=== PATIENT | male | born 1980 ===

== ENCOUNTER 2016-12-08 19:55 | Emergency (ER) | payer OTHER ==
[2016-12-08 21:08] VITALS: BP 139/98; PULSE 82; RESP 17; TEMP 98.6; O2SAT 99
[2016-12-08] MEDS ORDERED: Lidocaine 2% w Epi 1:100,000 Inj IJ ONE (21:42)
[2016-12-08] MEDS ORDERED: Lidocaine/Epi 1% 1:100000 20 ML IJ ONE (21:47)
--- NOTE | 2016-12-08 22:11 | ED PDOC ---
HPI: General Adult Time Seen by Provider: 12/08/16 21:44 Chief Complaint (Nursing): Abnormal Skin Integrity History Per: Patient History/Exam Limitations: no limitations Onset/Duration Of Symptoms: Hrs Current Symptoms Are (Timing): Still Present Additional Complaint(s): hx of abscesses p/w reaccumalated perianal abscess, has f/u w/ specialty services for potential surgery. c/o of pain to area and swelling, no fevers/ chills. Past Medical History Reviewed: Historical Data, Nursing Documentation, Vital Signs Vital Signs: Last Vital Signs Temp 98.6 F 12/08/16 21:05 Pulse 82 12/08/16 21:05 Resp 17 12/08/16 21:05 BP 139/98 H 12/08/16 21:05 Pulse Ox 99 12/08/16 21:05 - Family History Family History: States: Unknown Family Hx - Home Medications Home Medications: Ambulatory Orders Medication Instructions Recorded Cephalexin [cephalexin] 500 mg PO Q6 #28 cap 08/17/16 No Home Meds 08/17/16 - Allergies Allergies/Adverse Reactions: Allergies Allergy/AdvReac Type Severity Reaction Status Date / Time No Known Allergies Allergy Verified 08/17/16 19:30 Review of Systems ROS Statement: Except As Marked, All Systems Reviewed And Found Negative Skin: Positive for: Lesions (abscess) Physical Exam - Reviewed Nursing Documentation Reviewed: Yes Vital Signs Reviewed: Yes - Physical Exam Appears: Positive for: Well, Non-toxic, No Acute Distress Head Exam: Positive for: ATRAUMATIC, NORMAL INSPECTION, NORMOCEPHALIC Skin: Positive for: Normal Color, Warm, DRY Eye Exam: Positive for: EOMI, Normal appearance, PERRL ENT: Positive for: Normal ENT Inspection Neck: Positive for: Normal, Painless ROM Cardiovascular/Chest: Positive for: Regular Rate, Rhythm Respiratory: Positive for: CNT, Normal Breath Sounds Gastrointestinal/Abdominal: Positive for: Normal Exam, Bowel Sounds, Soft Back: Positive for: Normal Inspection Rectal: Positive for: Other (Zeinab-anal abscess, flucutance, draining blood, also keloids ) Extremity: Positive for: Normal ROM Neurologic/Psych: Positive for: Alert, Oriented - ECG O2 Sat by Pulse Oximetry: 99 Pulse Ox Interpretation: Normal Medical Decision Making Medical Decision Making: Abscess- will drain and refer patient to specialty services Procedures - Incision and Drainage Site: zeinab-anal abscess Blade Size: 11 I & D Procedure: betadine prep, sterile drapes applied, sterile dressing applied Progress: lido w/ epi used area incised 1mm 2-3cc's of pus/blood drained pt tolerated procedure well Disposition - Clinical Impression Clinical Impression: Abscess - Disposition Referrals: [facility] [Outside] Disposition Time: 22:13 Condition: STABLE Instructions: Abscess (ED), Abscess Incision and Drainage (ED) Print Language: GREEK
== END 2016-12-08 22:21 | disposition home or self-care (01) ==
LOC: H.ER 19:55
DX: K61.0 Anal abscess (principal)

== ENCOUNTER 2017-01-31 11:03 | Day surgery (SDC) | payer SELFPAY ==
[2017-01-26 10:01] VITALS: BMI 29.6
[2017-01-31] MEDS ORDERED: Lactated Ringer's 1,000 ML IV ONE (11:35)
[2017-01-31] MEDS ORDERED: Propofol 10 mg/ml Inj (20 ML) ONE (13:13)
[2017-01-31] MEDS ORDERED: Succinylcholine 200 mg/10 ml Inj IV ONE (13:13)
[2017-01-31] MEDS ORDERED: Midazolam 2 MG/2 ML VIAL ONE (14:04)
--- NOTE | 2017-01-31 14:48 | PCM.SURG1 ---
Surgeon's Initial Post Op Note - Surgeon's Notes Surgeon: Dr. Matson Director Of Student Aid: Samuel PGY1 Type of Anesthesia: General Endo, IV Sedation Anesthesia Administered By: Deisi Pre-Operative Diagnosis: Pilonidal Cyst Operative Findings: Same Post-Operative Diagnosis: Same Operation Performed: Excision of Pilonidal cyst Specimen/Specimens Removed: none Estimated Blood Loss: EBL {In ML}: 10 Blood Products Given: N/A Drains Used: No Drains Post-Op Condition: Good Date of Surgery/Procedure: 01/31/17 Time of Surgery/Procedure: 14:48
[2017-01-31] MEDS ORDERED: Oxycodone/Acetaminophen 5/325 mg Tab PO PRN (14:49)
[2017-01-31] MEDS ORDERED: HYDROmorphone 0.5 mg/0.5 ml ISec IVP PRN (14:52)
[2017-01-31] MEDS ORDERED: Dexamethasone 4 mg/1 ml IVP PRN (14:52)
--- NOTE | 2017-01-31 14:58 | CP.SDSHP ---
Same Day Surgery H & P - History Proposed Procedure: Excision of Pilonidal cyst - Allergies Allergies: Allergies No Known Allergies Allergy (Verified 08/17/16 19:30) - Physical Exam Vital Signs: Vital Signs 01/31/17 01/31/17 11:24 11:26 Temperature 98.2 F Pulse Rate 62 62 Respiratory 20 Rate Blood Pressure 135/90 O2 Sat by Pulse 100 Oximetry Short Stay Discharge - Short Stay Discharge Admitting Diagnosis/Reason for Visit: L05.01 Disposition: HOME/ ROUTINE Referrals: Alia Matson MD [Primary Care Provider] - Progress Note/Discharge Note with Instructions: Patient is cleared for discharge. 1. Follow up with Dr. Matson in 2 weeks. Call for appointment. 2. Remove dressing in 2 days. Replace with dry gauze as needed 3. You may shower in two days. No bathing , no soaking 4. Use pain meds sparingly 5. Return to the ED with any concerning symptoms
[2017-01-31 16:11] VITALS: RESP 18; TEMP 98
[2017-01-31 17:58] VITALS: BP 124/76; PULSE 62; O2SAT 98
--- NOTE | 2017-02-01 02:57 | OP ---
PROCEDURE DATE: 01/31/2017 PREOPERATIVE DIAGNOSIS: Pilonidal cyst, left buttock. POSTOPERATIVE DIAGNOSIS: Pilonidal cyst, left buttock. PROCEDURE: Debridement of pilonidal cyst. SURGEON: Alia Matson MD HEAD OF MAINTENANCE: Dr. Baker. TYPE OF ANESTHESIA: General. ANESTHESIA ADMINISTERED BY: Dr. Lipscomb. DESCRIPTION OF OPERATION: The patient was placed in a left side up lateral position. After the induction of general anesthesia, the lower back and buttocks were prepped and draped in the usual sterile manner. On the somewhat medial portion of the left buttock, but just barely within the gluteal crease, there was noted to be two small masses of granulation tissue with some purulent drainage coming from one of the masses at a side where the patient said he has had chronic drainage over a period of several months. Incision was made into this area with incision of the flatter portion of elevated granulation tissue down to the area of the sinus, which was draining and the other piece of granulation tissue was excised using cautery. A small cavity was thus identified, which contained other chronically inflamed granulation type tissue and no significant track was identified extending either towards the midline of the gluteal crease or towards the rectal area. The cavity was debrided and scrapped using a curette and any visible granulation tissue was cauterized. Iodoform packing was placed followed by dry sterile dressing. The patient tolerated the procedure well and transferred to the recovery room in stable condition. Estimated blood loss for the procedure was 30 mL. Alia Matson MD
== END 2017-01-31 17:30 | disposition home or self-care (01) ==
LOC: H.OPSURG 11:03
PROVIDERS: ATTEND Specialist
DX: L05.01 Pilonidal cyst with abscess (principal)

== ENCOUNTER 2017-09-10 10:39 | Day surgery (SDC) | payer SELFPAY ==
[2017-08-30 14:14] VITALS: BMI 30.4
[2017-09-10] MEDS ORDERED: Succinylcholine 200 mg/10 ml Inj IV ONE (11:22)
[2017-09-10] MEDS ORDERED: Lidocaine 4% (Laryng-O-Jet) Kit MM ONE (11:22)
[2017-09-10] MEDS ORDERED: Propofol 10 mg/ml Inj (20 ML) ONE ×2 (11:22→12:40)
[2017-09-10] MEDS ORDERED: Methylene Blue 10 mg/mL(10ml) IV ONE (11:55)
[2017-09-10] MEDS ORDERED: Midazolam 2 MG/2 ML VIAL ONE (12:07)
[2017-09-10] MEDS ORDERED: Lactated Ringer's 1,000 ML IV ONE ×2 (12:20→14:35)
[2017-09-10] MEDS ORDERED: HYDROmorphone 0.5 mg/0.5 ml ISec IVP PRN (13:11)
[2017-09-10] MEDS ORDERED: Lactated Ringer's 1,000 ML IV SCH (13:15)
--- NOTE | 2017-09-10 13:37 | CP.SDSHP ---
Same Day Surgery H & P - History Proposed Procedure: anal fistulectomy Pre-Op Diagnosis: anal fistula - Previous Medical/Surgical History Pain: 2.Mild Pain Previous Surgical History: pilonidal cyst excision 2017 - Allergies Allergies: Allergies No Known Allergies Allergy (Verified 09/10/17 10:51) - Physical Exam General Appearance: WDWN male in NAD Vital Signs: Vital Signs 09/10/17 09/10/17 09/10/17 11:17 11:21 13:09 Temperature 97.9 F 95.6 F L Pulse Rate 50 L 50 L 57 L Respiratory 18 17 Rate Blood Pressure 122/75 135/67 O2 Sat by Pulse 99 98 Oximetry 09/10/17 13:25 Temperature 96.1 F L Pulse Rate 59 L Respiratory 17 Rate Blood Pressure 134/69 O2 Sat by Pulse 98 Oximetry Mental Status: Alert & Oriented x3 Neuro: WNL Heart: WNL Lungs: WNL GI: WNL - {Optional Preform as Required} Rectal: Other (Granulating, draining opening medial L buttock at 4:00) - Impression Impression: anal fistula Pt. Evaluated Today:Candidate for Anesthesia & Procedure: Yes - Date & Time Date: 09/10/17 Time: 11:15 Short Stay Discharge - Short Stay Discharge Admitting Diagnosis/Reason for Visit: K60.3 Disposition: HOME/ ROUTINE Medications: oxyCODONE/Acetaminophen [Percocet 5/325 mg Tab] 1 ea PO Q4H PRN 2 Days #7 tab PRN Reason: Pain, Moderate (4-7) Referrals: Alia Matson MD [Primary Care Provider] - Follow-up: [facility] 2 weeks Additional Instructions (Diet, Activity): Clean area with shower BID/PRN Progress Note/Discharge Note with Instructions: Surgical site clean, dry. Stable postop
--- NOTE | 2017-09-10 13:44 | PCM.SURG1 ---
Surgeon's Initial Post Op Note - Surgeon's Notes Surgeon: Mitch Matson Shell Worker: none Type of Anesthesia: General Endo Anesthesia Administered By: Venus Pre-Operative Diagnosis: anal fistula Operative Findings: L buttock opening at 4:00 tracking to anterior internal opening at 12:00. 0-silk seton Post-Operative Diagnosis: anal fistula Operation Performed: Proctoscopy, exploration of anal fistula with seton placement Specimen/Specimens Removed: none Estimated Blood Loss: EBL {In ML}: 10 Blood Products Given: N/A Drains Used: No Drains Post-Op Condition: Good Date of Surgery/Procedure: 09/10/17 Time of Surgery/Procedure: 13:44
--- NOTE | 2017-09-10 15:24 | OP ---
PROCEDURE DATE: 09/10/2017 PREOPERATIVE DIAGNOSIS: Anal fistula. POSTOPERATIVE DIAGNOSIS: Anal fistula. PROCEDURE: Rigid proctoscopy and exploration of anal fistula with seton placement. SURGEON: Alia Matson MD TYPE OF ANESTHESIA: General. ANESTHESIA ADMINISTERED BY: Dr. Donovan. DESCRIPTION OF OPERATION: The patient was anesthetized and placed in a lithotomy position using solid thin stirrups. The examination noted a granulating draining opening on the medial left buttock at approximately the 4 o'clock position 2 inches from the anal verge and rigid proctoscopy was performed up to 10 cm with the only finding being an anterior area of ulceration at 12 o'clock very closed to the anal verge. There were no other areas of abnormality. The proctoscope was removed. The buttocks and anal area were then prepped and draped in the usual sterile manner and a probe was placed via the buttock sinus opening and was noted to track anteriorly to the area that was identified on the proctoscopy as this was a fairly long track from 4 o'clock to 12 o'clock. Decision was made to place a seton and the probe was exposed and using the eye of the probe, a 0 silk tie was passed through the length of the track and then loosely tied. No additional areas of abnormality were identified and the area was irrigated and a dry sterile dressing placed. The patient tolerated the procedure well and transferred to recovery room in stable condition. Estimated blood loss for the procedure was 10 mL. Alia Matson MD
[2017-09-10 15:40] VITALS: RESP 18; O2SAT 98
[2017-09-10 15:52] VITALS: BP 129/77; PULSE 67; TEMP 98.9
== END 2017-09-10 16:25 | disposition home or self-care (01) ==
LOC: H.OPSURG 10:39
PROVIDERS: ATTEND Specialist
DX: K60.3 Anal fistula (principal)
CPT/HCPCS: 45300; J0330; J0690; J2001; J2250; J2405; J2704; J3010; J7030; J7120

== ENCOUNTER 2018-02-25 11:53 | Emergency (ER) | payer SELFPAY ==
[2018-02-25 11:54] VITALS: BMI 30.4
[2018-02-25] MEDS ORDERED: Naproxen 500 MG TAB PO STA (12:32)
[2018-02-25] MEDS ORDERED: Lidocaine 2% w Epi 1:100,000 Inj IJ ONE (12:32)
[2018-02-25] MEDS ORDERED: Tmp-Smz 800 mg-160 mg DS Tab PO STA (12:32)
--- NOTE | 2018-02-25 12:39 | ED PDOC ---
HPI: Wound Care - HPI Time Seen by Provider: 02/25/18 12:17 Chief Complaint (Nursing): Wound Check Chief Complaint (Provider): Wound Check History Per: Patient Exam Limitations: no limitations Onset/Duration Of Symptoms: Persistent, Worse Since (x2 days) Current Symptoms Are (Timing): Still Present Quality Of Symptoms: Draining Additional Complaint(s): 38 year old male complains of a persistent abscess with drainage to the left buttock which became worse 2 days ago. Patient reports the abscess has been drained 2 times in the past by Dr. Alia Matson and that he developed a fistula the last time in September of this year and a suture is in place in the buttock location. Otherwise: (-) fever, (-) chills, (-) nausea, (-) vomiting, or (-) urinary symptoms. PMD: none provided Past Medical History Reviewed: Historical Data, Nursing Documentation, Vital Signs Vital Signs: Last Vital Signs Temp 97 F L 02/25/18 11:57 Pulse 77 02/25/18 11:57 Resp 18 02/25/18 11:57 BP 142/82 02/25/18 11:57 Pulse Ox 97 02/25/18 11:57 - Medical History PMH: No Chronic Diseases Denies: Chronic Kidney Disease - Surgical History Surgical History: Denies: No Surg Hx Other surgeries: pilonidal cyst drained x3 - Family History Family History: States: Unknown Family Hx - Social History Current smoker - smoking cessation education provided: No Ex-Smoker (has not smoked in the last 12 months): No Alcohol: Occasional Drugs: Denies - Home Medications Home Medications: Ambulatory Orders Medication Instructions Recorded Ibuprofen [Advil] 200 mg PO PRN PRN 09/10/17 oxyCODONE/Acetaminophen [Percocet 1 ea PO Q4H PRN 2 Days #7 tab 09/10/17 5/325 mg Tab] Cephalexin [Keflex] 500 mg PO Q6 #28 capsule 02/25/18 Naproxen 500 mg PO BID PRN #20 tablet 02/25/18 Sulfamethoxazole/Trimethoprim 2 tab PO BID #28 tab 02/25/18 [Bactrim DS 800 mg-160 mg] - Allergies Allergies/Adverse Reactions: Allergies Allergy/AdvReac Type Severity Reaction Status Date / Time No Known Allergies Allergy Verified 03/05/18 10:51 Review of Systems ROS Statement: Except As Marked, All Systems Reviewed And Found Negative Constitutional: Negative for: Fever, Chills Gastrointestinal: Negative for: Nausea, Vomiting Genitourinary Male: Negative for: Dysuria, Hematuria Skin: Positive for: Other (left buttock abscess with drainage) Physical Exam - Reviewed Nursing Documentation Reviewed: Yes Vital Signs Reviewed: Yes - Physical Exam Comments: GENERAL APPEARANCE: Patient is awake, alert, oriented x 3, in no acute distress. Skin: warm and dry. +3x4cm tender, slightly fluctuant abscess to the medial aspect of left buttock with drainage. Proximal to the abscess is a black suture in place. Pulmonary: lungs clear, no rhonchi, no wheezing. Cardiac: regular rate and rhythm, no murmur, no gallop. Abdomen: soft, nontender. Back: no midline tenderness. Extremities: no deformity, full range of motion, no tenderness. - ECG O2 Sat by Pulse Oximetry: 97 (RA) Pulse Ox Interpretation: Normal Medical Decision Making Medical Decision Making: Time: 1232 Initial Plan: * Bactrim DS * Keflex 500mg PO * Naproxen 500mg PO * Xylocaine 2% with Epi 5ml IJ Time: 1230 --Case discussed with neurosurgical nurse, Dr. Rosario, who states that a seton suture is in place for fistula and to "leave it as it is". Patient is advised to follow up with his surgeon, Dr. Matson, at the clinic without fail. Advised to take medication as prescribed. Return to the emergency room at any time for any new or worsening symptoms. --Patient states he fully agrees with and understands discharge instructions. States that he agrees with the plan and disposition. Verbalized and repeated discharge instructions and plan. I have given the patient opportunity to ask any additional questions. Scribe Attestation: Documented by Tara Benitez, acting as a scribe for Vicenta Tellez PA-C. Provider Scribe Attestation: All medical record entries made by the Scribe were at my direction and personally dictated by me. I have reviewed the chart and agree that the record accurately reflects my personal performance of the history, physical exam, medical decision making, and the department course for this patient. I have also personally directed, reviewed, and agree with the discharge instructions and disposition. Disposition - Clinical Impression Clinical Impression: Abscess - Patient ED Disposition Is Patient to be Admitted: No Counseled Patient/Family Regarding: Diagnosis, Need For Followup, Rx Given - Disposition Referrals: [facility] [Outside] Disposition: Routine/Home Disposition Time: 12:30 Condition: IMPROVED Additional Instructions: Thank you for letting us take care of you today. You were treated for abscess. The emergency medical care you received today was directed at your acute symptoms. If you were prescribed any medication, please fill it and take as directed. It may take several days for your symptoms to resolve. Return to the Emergency Department if your symptoms worsen, do not improve, or if you have any other problems. Please call one of the physicians/clinics you have been referred to that are listed on the Patient Visit Information form that is included in your discharge packet. Bring any paperwork you were given at discharge with you along with any medications you are taking to your follow up visit. Our treatment cannot replace ongoing medical care by a primary care provider (PCP) outside of the emergency department. Thank you for allowing the [facility] team to be part of your care today. Prescriptions: Cephalexin [Keflex] 500 mg PO Q6 #28 capsule Naproxen 500 mg PO BID PRN #20 tablet PRN Reason: Pain, Moderate (4-7) Sulfamethoxazole/Trimethoprim [Bactrim DS 800 mg-160 mg] 2 tab PO BID #28 tab Instructions: Abscess Incision and Drainage Forms: [email or web address] (Bhutanese), [facility] ED School/Work Excuse - PA / TRANSMITTER SUPERVISOR / Resident Statement MD/DO has reviewed & agrees with the documentation as recorded. Procedures - Incision and Drainage Site: medial L buttock Blade Size: 11 I & D Procedure: betadine prep, sterile drapes applied Progress: Time: 5 --Left buttock abscess Prior to procedure, "time out" was called in order to confirm the correct patient and procedure. Through aseptic technique, local anesthesia was administered to abscess, incision and drainage of abscess was performed by PA which produced purulent material. Wound packing was inserted to the wound. Clean dressing was applied.
[2018-02-25] MEDS ORDERED: Lidocaine PF 2% (5 ml) Inj (For Cardiac Arrhy) ONE (12:55)
[2018-02-25] MEDS ORDERED: Naproxen 500 MG TAB PO ONE (12:56)
[2018-02-25] MEDS ORDERED: Tmp-Smz 800 mg-160 mg DS Tab ONE (12:56)
[2018-02-25 14:08] VITALS: BP 138/72; PULSE 75; RESP 15; TEMP 98.6
[2018-02-25 14:38] VITALS: O2SAT 97
== END 2018-02-25 14:08 | disposition home or self-care (01) ==
LOC: H.ER 11:53
DX: L02.31 Cutaneous abscess of buttock (principal)

== ENCOUNTER 2018-08-06 19:49 | Emergency (ER) | payer SELFPAY ==
[2018-08-06 19:49] VITALS: BMI 30.4
[2018-08-06 21:18] VITALS: RESP 16; TEMP 98.3
--- NOTE | 2018-08-06 23:12 | CP.PCM.CON ---
History of Present Illness - History of Present Illness History of Present Illness: SURGERY CONSULT NOTE FOR DR. HAUSER Reason: left buttock abscess 38M presents with left buttock abscess that started a couple days ago. Patient states it has been getting bigger and more tender. He was in the clinic 10 days ago for seton silk suture removal from an operation he had last year for anal fistula repair. He denies any fevers, chills. Abscess is now spontaneously draining purulent fluid. PMH: denies PSH: Anal fistula repair with seton, pilonidal cyst excision Past Patient History - Past Medical History & Family History Past Medical History?: No - Past Social History Smoking Status: Never Smoked - CARDIAC Hx Cardiac Disorders: No - PULMONARY Hx Respiratory Disorders: No - NEUROLOGICAL Hx Neurological Disorder: No - HEENT Hx HEENT Problems: No - RENAL Hx Chronic Kidney Disease: No - ENDOCRINE/METABOLIC Hx Endocrine Disorders: No - HEMATOLOGICAL/ONCOLOGICAL Hx Blood Disorders: No - INTEGUMENTARY Hx Dermatological Problems: No - MUSCULOSKELETAL/RHEUMATOLOGICAL Hx Musculoskeletal Disorders: No - GASTROINTESTINAL Hx Gastrointestinal Disorders: No - GENITOURINARY/GYNECOLOGICAL Hx Genitourinary Disorders: No - PSYCHIATRIC Hx Emotional Abuse: No Hx Physical Abuse: No Hx Substance Use: No - SURGICAL HISTORY Hx Surgeries: Yes Other/Comment: pilondial cyst - ANESTHESIA Hx Anesthesia: Yes Hx Anesthesia Reactions: No Hx Malignant Hyperthermia: No Meds Allergies/Adverse Reactions: Allergies Allergy/AdvReac Type Severity Reaction Status Date / Time No Known Allergies Allergy Verified 08/06/18 21:15 Physical Exam - Constitutional Appears: Non-toxic, No Acute Distress - ENT Exam ENT Exam: Mucous Membranes Moist - Respiratory Exam Respiratory Exam: Clear to Auscultation Bilateral, NORMAL BREATHING PATTERN - Cardiovascular Exam Cardiovascular Exam: REGULAR RHYTHM, +S1, +S2 - GI/Abdominal Exam GI & Abdominal Exam: Soft. absent: Distended, Firm, Guarding, Rebound, Rigid, Tenderness - Rectal Exam Additional comments: left buttock abscess, 4*4cm draining purulent fluid, area of induration - Neurological Exam Neurological exam: Alert, Oriented x3 - Skin Skin Exam: Dry, Intact, Normal Color, Warm Results - Vital Signs Recent Vital Signs: Last Vital Signs Temp 98.3 F 08/06/18 21:15 Pulse 65 08/06/18 21:15 Resp 16 08/06/18 21:15 BP 134/83 08/06/18 21:15 Pulse Ox 100 08/06/18 21:15 Assessment & Plan - Assessment and Plan (Free Text) Assessment: 38M with left buttock abscess, spontaneously draining Plan: - dose of IV antibiotics - PO antibiotics - pain control - warm compresses - Follow up in outpatient Discussed with Dr. Dano Blanchard, PGY3
[2018-08-06] MEDS ORDERED: Vancomycin 1 g Inj ONE (23:13)
--- NOTE | 2018-08-06 23:37 | ED PDOC ---
HPI: Wound Care - HPI Time Seen by Provider: 08/06/18 21:33 Chief Complaint (Nursing): Abnormal Skin Integrity Chief Complaint (Provider): abscess History Per: Patient Quality Of Symptoms: Painful Additional History Per: Patient Additional Complaint(s): Pt is a 38 y/o Male with history of recurrent buttock abscess, previous fistula formation with surgery and previous I&Ds done with Dr. Matson and surgical team. Pt. reports last check with Dr. Matson was about 10 d. ago, well exam however over past couple days developed painful swelling to same area, no fevers. Past Medical History Vital Signs: Last Vital Signs Temp 98.3 F 08/06/18 21:15 Pulse 65 08/06/18 21:15 Resp 16 08/06/18 21:15 BP 134/83 08/06/18 21:15 Pulse Ox 100 08/06/18 21:15 - Medical History PMH: No Chronic Diseases Denies: Chronic Kidney Disease - Family History Family History: States: Unknown Family Hx - Home Medications Home Medications: Ambulatory Orders Medication Instructions Recorded Ibuprofen [Advil] 200 mg PO PRN PRN 09/10/17 oxyCODONE/Acetaminophen [Percocet 1 ea PO Q4H PRN 2 Days #7 tab 09/10/17 5/325 mg Tab] Cephalexin [Keflex] 500 mg PO Q6 #28 capsule 02/25/18 Naproxen 500 mg PO BID PRN #20 tablet 02/25/18 Sulfamethoxazole/Trimethoprim 2 tab PO BID #28 tab 02/25/18 [Bactrim DS 800 mg-160 mg] Sulfamethoxazole/Trimethoprim 1 tab PO BID #14 tab 08/06/18 [Bactrim DS 800 mg-160 mg] - Allergies Allergies/Adverse Reactions: Allergies Allergy/AdvReac Type Severity Reaction Status Date / Time No Known Allergies Allergy Verified 08/06/18 21:15 Review of Systems Constitutional: Negative for: Fever, Chills Gastrointestinal: Negative for: Nausea, Vomiting Skin: Positive for: Other Physical Exam - Physical Exam Appears: Positive for: Well, Non-toxic Head Exam: Positive for: ATRAUMATIC Skin: Positive for: Normal Color, Warm, Dry Cardiovascular/Chest: Positive for: Regular Rate, Rhythm Respiratory: Positive for: Normal Breath Sounds Gastrointestinal/Abdominal: Positive for: Normal Exam Rectal: Positive for: Other (localized area of erythema, tenderness and fluctuance to left buttock, with overlying scars from previous incisions. Mild surround induration.) - ECG O2 Sat by Pulse Oximetry: 100 Medical Decision Making Medical Decision Making: Case d/w bank president who evaluated pt in ED. Purulence expressed by surgery resident and wound dressed. Requesting IV vanc and pt. can follow up with Dr. Matson in surg clinic. Disposition - Clinical Impression Clinical Impression: Abscess Doctor Will See Patient In The: Office Counseled Patient/Family Regarding: Diagnosis, Rx Given - Disposition Referrals: Alia Matson MD [Staff Provider] - Disposition: Routine/Home Disposition Time: 23:41 Condition: STABLE Prescriptions: Sulfamethoxazole/Trimethoprim [Bactrim DS 800 mg-160 mg] 1 tab PO BID #14 tab Instructions: Abscess Incision and Drainage (DC)
[2018-08-07 00:12] VITALS: BP 120/75; PULSE 68; O2SAT 99
== END 2018-08-07 01:47 | disposition home or self-care (01) ==
LOC: H.ER 19:49
DX: L02.31 Cutaneous abscess of buttock (principal)